=== PATIENT | male | born 1975 | race Caucasian/White ===

== ENCOUNTER → 2016-11-24 | Outpatient (CLI) | payer OTHER ==
--- NOTE | 2016-11-24 14:42 | KCIC ---
PQRS STATEMENT: One or more of the following in the visualized dose reduction techniques were utilized for this study: 1. Automatic exposure control, 2. Adjustment of the mA and/or kV according to patient size, 3. Use of iterative reconstruction technique CT SINUS HISTORY: Chronic sinusitis Technique: 2.5 mm contiguous axial images were obtained through the paranasal sinuses. Additional coronal reconstructions were performed. FINDINGS: There are are in no abnormalities identified involving either globe. No preseptal soft tissue swelling is seen. The optic nerve is not enlarged. There is no evidence of proptosis. The retro-orbital fat is preserved. No enlargement of the extraocular muscles is identified. The bony orbit is intact. No fractures are seen. No radiopaque foreign body is identified. The paranasal sinuses are clear apart from some mucosal thickening of the frontoethmoid recesses. No significant facial soft tissue swelling is identified. Temporomandibular joints are within normal limits. Visualized intracranial contents are within normal limits. IMPRESSION: The paranasal sinuses are clear apart from some possible thickening of the frontoethmoid recesses. Electronically signed by: Santiago Joel MD (11/24/2016 2:39 PM) [place] [id number]
== END | disposition home or self-care (01) ==
LOC: KCIC CT 12:57
PROVIDERS: ATTEND Otolaryngology
DX: J32.9 Chronic sinusitis, unspecified (principal)
CPT/HCPCS: 70486